=== PATIENT | male | born 1945 ===

== ENCOUNTER 2016-11-18 12:44 | Emergency (ER) | payer MEDICARE, OTHER ==
[2016-11-18 12:45] VITALS: BMI 25.7
[2016-11-18 13:04] VITALS: RESP 18
[2016-11-18 14:16] LABS: BASO # 0.1 K/uL (0.0-0.2); BASO % 0.5 % (0.0-2.0); EOS # 1.3 K/uL (0.0-0.7); EOS % 8.4 % (0.0-4.0); HEMATOCRIT 44.5 % (35.0-51.0); LYMPH # 1.8 K/uL (1.0-4.3); LYMPH % 11.6 % (20.0-40.0); MEAN CELL VOLUME 79.3 fL (80.0-94.0); MEAN CORPUSCULAR HEMOGLOBIN 26.2 pg (27.0-31.0); MEAN CORPUSCULAR HGB CONC 33.1 g/dL (33.0-37.0); MEAN PLATELET VOLUME 9.9 fL (7.2-11.7); MONO # 4.4 K/uL (0.0-0.8); MONO % 29.1 % (0.0-10.0); PLATELET COUNT 185 K/uL (130-400); RED CELL DISTRIBUTION WIDTH 17.4 % (11.5-14.5); WHITE BLOOD COUNT 15.2 K/uL (4.8-10.8)
[2016-11-18 14:28] LABS: CHLORIDE 96 mmol/L (98-107); POTASSIUM 4.6 mmol/L (3.6-5.2); SODIUM 135 mmol/L (132-148)
[2016-11-18 14:30] LABS: GFR AFRICAN-AMERICAN > 60
[2016-11-18 14:31] LABS: ALKALINE PHOSPHATASE 68 U/L (38-126); ALT/SGPT 18 U/L (21-72); AST/SGOT 14 U/L (17-59); BILIRUBIN,TOTAL 0.9 mg/dL (0.2-1.3); BLOOD UREA NITROGEN 11 mg/dL (9-20); CALCIUM 9.4 mg/dl (8.6-10.4); CARBON DIOXIDE 29 mmol/L (22-30); GLUCOSE,RANDOM 100 mg/dL (75-110); TOTAL PROTEIN 8.9 g/dL (6.3-8.3)
--- NOTE | 2016-11-18 14:43 | CT ---
PROCEDURE: CT HEAD WITHOUT CONTRAST. HISTORY: Headache COMPARISON: None available. TECHNIQUE: Axial computed tomography images were obtained through the head/brain without intravenous contrast. Radiation dose: Total exam DLP = 822.62 mGy-cm. This CT exam was performed using one or more of the following dose reduction techniques: Automated exposure control, adjustment of the mA and/or kV according to patient size, and/or use of iterative reconstruction technique. FINDINGS: HEMORRHAGE: No intracranial hemorrhage. BRAIN: Diffuse atrophy with prominence of the ventricles and sulci noted. No mass effect or edema. Intracranial atherosclerotic calcifications. Moderate scattered periventricular and subcortical white matter hypodensities, which are nonspecific, but often seen with chronic microvascular ischemic disease. Please note that MRI with diffusion imaging is more sensitive in the detection of acute ischemic event. VENTRICLES: No hydrocephalus. CALVARIUM: Unremarkable. PARANASAL SINUSES: Unremarkable as visualized. No significant inflammatory changes. MASTOID AIR CELLS: Unremarkable as visualized. No inflammatory changes. OTHER FINDINGS: Deviated nasal septum with left-sided bony spur measuring approximately 4 mm. IMPRESSION: Generalized atrophy. Moderate nonspecific white matter changes.
--- NOTE | 2016-11-18 14:53 | CT ---
CT maxillofacial bones without IV contrast Indication: Facial pain Comparison: None available Technique: Axial computed tomography images were obtained of the maxillofacial bones without the use of intravenous contrast. Coronal and sagittal reformatted images were generated and reviewed. This CT exam was performed using 1 or more of the falling dose reduction techniques: Automated exposure control, adjustment of the MAA and/or kV according to patient size, and/or use of iterative reconstruction technique. Radiation dose: Total exam DLP = 836.46 mGy-cm. Findings: The facial bones appear intact without acute displaced fracture. The orbits appear unremarkable. Temporomandibular joints are located. Poor dentition. The paranasal sinuses appear clear without air-fluid levels. The mastoid air cells appear clear. The visualized brain appears unremarkable. Prominent sub cm lymph nodes throughout the neck, nonspecific. Degenerative changes of the included portions cervical spine, particularly at the C1-C2 level. Impression: No acute findings identified. See above.
[2016-11-18] MEDS ORDERED: Sodium Chloride 0.9% 500 ML IV ONE ×2 (15:01→15:11)
[2016-11-18 15:18] LABS: EOSINOPHIL 7 % (0-4); NEUTROPHIL 56 % (50-75); TOTAL CELLS COUNTED 100
[2016-11-18 15:19] LABS: GIANT PLATELETS PRESENT
[2016-11-18] MEDS ORDERED: Amoxicillin-Clav 875-125 mg Tab PO STA (15:22)
--- NOTE | 2016-11-18 15:25 | C.PDOC ---
History Of Present Illness Pt c/o left facial pain. Mouth pain. Time Seen by Provider: 11/18/16 13:32 Chief Complaint (Nursing): Headache History Per: Patient, Family Onset/Duration Of Symptoms: Days (6), Intermittent Episodes, Gradual Current Symptoms Are (Timing): Still Present Severity: Moderate Quality: "Pain" Additional History Per: Prior Records Past Medical History Reviewed: Historical Data, Nursing Documentation, Vital Signs Vital Signs: Last Vital Signs Temp 97.6 F 11/18/16 13:01 Pulse 100 H 11/18/16 13:01 Resp 18 11/18/16 13:01 BP 132/87 11/18/16 13:01 Pulse Ox 96 11/18/16 13:01 - Medical History PMH: Atrial Fibrillation, HTN - [facility] Procedures OTH & OPEN BILAT REP INDIRECT INGUINAL HERNIA W [facility] OR PROST (06/28/13) TETANUS TOXOID ADMINIST (11/16/12) Family History: States: Unknown Family Hx - Social History Hx Tobacco Use: Yes Hx Alcohol Use: No Hx Substance Use: No - Immunization History Hx Tetanus Toxoid Vaccination: No Hx Influenza Vaccination: No Hx Pneumococcal Vaccination: No Review Of Systems Except As Marked, All Systems Reviewed And Found Negative. Constitutional: Negative for: Fever, Weakness Eyes: Negative for: Vision Change ENT: Positive for: Mouth Pain, Throat Pain. Negative for: Ear Discharge Cardiovascular: Negative for: Chest Pain Respiratory: Negative for: Shortness of Breath, Hemoptysis Gastrointestinal: Negative for: Nausea, Vomiting, Abdominal Pain Genitourinary: Negative for: Dysuria Musculoskeletal: Negative for: Neck Pain, Back Pain Skin: Negative for: Rash Neurological: Positive for: Headache. Negative for: Weakness, Numbness, Seizures, Altered Mental Status Physical Exam - Physical Exam Appears: Non-toxic, No Acute Distress Skin: Normal Color, Warm, Dry, No Rash Head: Atraumatic, Normacephalic Eye(s): bilateral: Normal Inspection, PERRL, EOMI Ear(s): Bilateral: Normal Oral Mucosa: Moist, No Drooling, No Trismus Tongue: Normal Appearing Gingiva: Erythema, Swelling Throat: Erythema, No Exudate, No Drooling Neck: Normal ROM, Supple Lymphatic: No Adenopathy Cardiovascular: Rhythm Regular Respiratory: Normal Breath Sounds, No Accessory Muscle Use Gastrointestinal/Abdominal: Soft, No Tenderness Back: No CVA Tenderness Extremity: Normal ROM Neurological/Psych: Oriented x3, Normal Speech, Normal Cognition, Normal Motor, Normal Sensation ED Course And Treatment - Laboratory Results Result Diagrams: 11/18/16 14:13 11/18/16 14:13 Interpretation Of Abnormal: Leukocytosis. ECG: Interpreted By Me, Viewed By Me ECG Rhythm: Sinus Rhythm ECG Interpretation: No Acute Changes Rate From EC O2 Sat by Pulse Oximetry: 96 Pulse Ox Interpretation: Normal - CT Scan/US CT head Other Rad Studies (CT/US): Read By Radiologist, Radiology Report Reviewed CT/US Interpretation: IMPRESSION: Generalized atrophy. Moderate nonspecific white matter changes. CT Facial bones Other Rad Studies (CT/US): Read By Radiologist, Radiology Report Reviewed CT/US Interpretation: Impression: No acute findings identified. Reassessment Condition: Improved Disposition Counseled Patient/Family Regarding: Studies Performed, Diagnosis, Need For Followup, Rx Given - Disposition Referrals: [facility] [Outside] Disposition: HOME/ ROUTINE Disposition Time: 15:28 Condition: IMPROVED Additional Instructions: Use antiseptic mouth wash. Follow up in the clinic within 1-2 weeks for further evaluation and treatment. Return to the ER if you develop fever, vomiting, trouble breathing or swallowing, worsening of symptoms or if you have any other concerns. Prescriptions: Acetaminophen [Tylenol Extra Strength] 2 tab PO Q6 PRN #30 tablet PRN Reason: Pain, Moderate (4-7) Amoxicillin/Clavulanate [Augmentin 875 MG-125 MG] 1 tab PO BID #14 tab Instructions: Gingivitis (ED) Forms: General Discharge Instructions, Gen Discharge Inst Khmer Print Language: TRINIDADIAN - Clinical Impression Clinical Impression: Gingivitis, Facial pain
[2016-11-18] MEDS ORDERED: Amoxicillin-Clav 875-125 mg Tab PO ONE (15:38)
[2016-11-18 15:46] VITALS: BP 121/77; PULSE 74; TEMP 98; O2SAT 98
--- NOTE | 2016-11-20 07:53 | CARD ---
APPROVED REPORT EKG Measurement Heart [id number] <Conclusion> Normal sinus rhythm Normal ECG
== END 2016-11-18 15:46 | disposition home or self-care (01) ==
LOC: C.ER 12:44
DX: R51 Headache (principal); K05.10 Chronic gingivitis, plaque induced
CPT/HCPCS: 70450; 70486; 80053; 84484; 85025; 87070; 87430; 93005; 96374; 99285; J1885; J7040

== ENCOUNTER 2016-11-28 09:29 | Observation (INO) | payer OTHER ==
[2016-11-28 09:29] VITALS: BMI 25.7
--- NOTE | 2016-11-28 10:11 | C.PDOC ---
History Of Present Illness RECUR L EAR/FACIAL SWELL X 2 DAYS. +SORE THROAT. SEEN 11/18 FOR SAME, DC W ABX. CT FACIAL AND HEAD REVIEWED.PS FINISHED ABX 2 DAYS AGO, WAS DOING WELL UNTIL MEDS FINISHED. NOW W RECUR SX. NO FEVER. NO PMD OR DENTAL FU SINCE PRIOR ER VISIT. SP TYLENOL @ 0800 EXAM NONTOXIC HEENT L TM NEG; MILD SWELL L FACIAL/PAROTID AREA NONTEND. POOR DENTITION. MILD SWELL L TONSIL, NO EXUDATE MIN ERYTHEMA + L SUBMAND ADENOPATHY MILD TEND MOBILE. NECK SUPPLE Time Seen by Provider: 11/28/16 10:00 Chief Complaint (Nursing): ENT Problem Past Medical History Reviewed: Historical Data, Nursing Documentation, Vital Signs Vital Signs: Last Vital Signs Temp 97.5 F L 11/28/16 13:03 Pulse 75 11/28/16 13:03 Resp 18 11/28/16 13:03 BP 136/83 11/28/16 13:03 Pulse Ox 97 11/28/16 13:28 - Medical History PMH: Atrial Fibrillation, HTN Denies: Chronic Kidney Disease - [facility] Procedures OTH & OPEN BILAT REP INDIRECT INGUINAL HERNIA W GRF OR PROST (06/28/13) TETANUS TOXOID ADMINIST (11/16/12) Family History: States: No Known Family Hx - Social History Hx Tobacco Use: Yes Hx Alcohol Use: No Hx Substance Use: No - Immunization History Hx Tetanus Toxoid Vaccination: No Hx Influenza Vaccination: No Hx Pneumococcal Vaccination: No Review Of Systems Except As Marked, All Systems Reviewed And Found Negative. ENT: Positive for: Throat Pain, Other (EAR/FACIAL SWELL X 2 DAYS. ) Cardiovascular: Negative for: Chest Pain Respiratory: Negative for: Shortness of Breath Gastrointestinal: Negative for: Vomiting Skin: Negative for: Rash Physical Exam - Physical Exam Appears: Non-toxic, No Acute Distress Head: Other (MILD SWELL L FACIAL/PAROTID AREA, NONTEND. + L SUBMAND ADENOPATHY MILD TEND MOBILE.) Eye(s): left: Normal Inspection Teeth: No Normal Dentition (POOR) Throat: Erythema (minimal), No Exudate, Other (mild swelling to left tonsil) Neck: Normal ROM, Supple Respiratory: No Accessory Muscle Use Extremity: Normal ROM ED Course And Treatment - Laboratory Results Result Diagrams: 11/28/16 10:23 11/28/16 10:23 O2 Sat by Pulse Oximetry: 97 Progress - Data Reviewed Data Reviewed: Old records ED OBSERVATION Discharge: Yes Date of observation admission: 11/28/16 Time of observation admission: 10:00 - Observation admission statement Patient is being placed in observation because:: RECUR FACIAL SWELL - Goals of Observation Goals of observation are:: NEG ABSCESS - Progress Note Progress Note: 11/28/16 13:11 EXAM UNCH APPEARS COMFORTABLE NONTOXIC VSS. COPIES OF CT AND LABS GIVEN. ADVISED OF NEED FOR CLINIC FU. Disposition Counseled Patient/Family Regarding: Studies Performed, Diagnosis, Need For Followup - Disposition Disposition: HOME/ ROUTINE Disposition Time: 13:27 Condition: GOOD - Clinical Impression Clinical Impression: Facial swelling - Scribe Statement The provider has reviewed the documentation as recorded by the Torres Farias All medical record entries made by the Florenciaibkavin were at my direction and personally dictated by me. I have reviewed the chart and agree that the record accurately reflects my personal performance of the history, physical exam, medical decision making, and the department course for this patient. I have also personally directed, reviewed, and agree with the discharge instructions and disposition.
[2016-11-28 10:32] LABS: BASO # 0.1 K/uL (0.0-0.2); BASO % 0.9 % (0.0-2.0); EOS # 0.5 K/uL (0.0-0.7); EOS % 4.1 % (0.0-4.0); HEMATOCRIT 44.6 % (35.0-51.0); LYMPH # 1.9 K/uL (1.0-4.3); LYMPH % 14.8 % (20.0-40.0); MEAN CELL VOLUME 79.9 fL (80.0-94.0); MEAN CORPUSCULAR HEMOGLOBIN 26.2 pg (27.0-31.0); MEAN CORPUSCULAR HGB CONC 32.8 g/dL (33.0-37.0); MEAN PLATELET VOLUME 9.7 fL (7.2-11.7); MONO # 3.9 K/uL (0.0-0.8); MONO % 30.3 % (0.0-10.0); NRBC % 0.1 % (0.0-2.0); PLATELET COUNT 228 K/uL (130-400); RED CELL DISTRIBUTION WIDTH 17.4 % (11.5-14.5)
[2016-11-28 10:41] LABS: CHLORIDE 98 mmol/L (98-107); POTASSIUM 4.5 mmol/L (3.6-5.2); SODIUM 138 mmol/L (132-148)
[2016-11-28 10:43] LABS: CARBON DIOXIDE 27 mmol/L (22-30); GFR AFRICAN-AMERICAN > 60
[2016-11-28 10:44] LABS: BLOOD UREA NITROGEN 12 mg/dL (9-20); CALCIUM 9.2 mg/dl (8.6-10.4); GLUCOSE,RANDOM 101 mg/dL (75-110)
[2016-11-28 11:03] LABS: EOSINOPHIL 5 % (0-4); MYELOCYTE 1 % (0-0); NEUTROPHIL 40 % (50-75); REACTIVE LYMPHOCYTES 4 % (0-0); TOTAL CELLS COUNTED 100
[2016-11-28 11:04] LABS: GIANT PLATELETS PRESENT; LARGE PLATELETS PRESENT
[2016-11-28 11:05] LABS: VENOUS BLOOD GAS BASE EXCESS -1.5 mmol/L (0.0-2.0); VENOUS BLOOD GAS PCO2 47 mmHg (40-60); VENOUS BLOOD PH 7.33 (7.32-7.43)
[2016-11-28] MEDS ORDERED: Iodixanol 320 MG/ML 100 ML BOTTLE IV ONE (11:35)
--- NOTE | 2016-11-28 12:54 | CT ---
PROCEDURE: CT MAXILLOFACIAL BONES WITH CONTRAST HISTORY: RECUR L FACIAL SWELL PLEASE COMPARE W 11/18 COMPARISON: None. TECHNIQUE: Contiguous axial CT images of the maxillofacial bones were obtained following intravenous infusion of approximately 100 cc Visipaque 320 contrast material. Coronal and sagittal reformats were generated. Radiation dose: Total exam DLP = 837.84 mGy-cm. This CT exam was performed using one or more of the following dose reduction techniques: Automated exposure control, adjustment of the mA and/or kV according to patient size, and/or use of iterative reconstruction technique. FINDINGS: NASAL BONES: No evidence of acute of nasal bone fractures. . There is a very slight deviation of the mid aspect of the nasal septum to the left side associated with a small bony osteophyte projecting into the left nasal cavity. The nasal septum courses back towards the left side anteriorly within other smaller osteophyte projecting into the right aspect anterior nasal cavity. ORBITS: Orbits and contents appear grossly unremarkable. Globes intact and lenses appropriately located. There are no retrobulbar hemorrhages or collections. Optic nerves and extraocular musculature unremarkable. PARANASAL SINUSES/ MASTOIDS: Minor mucosal thickening seen within the ethmoid air complex as well as the right maxillary sinus. MAXILLA: Maxilla including the anterior nasal spine is intact. MANDIBLE/ TEMPOROMANDIBULAR JOINTS: The mandible and TMJs appear intact SKULL BASE: Unremarkable. TEMPORAL BONES: Middle ears and mastoid grossly unremarkable. OTHER FINDINGS: Moderate to significant chronic periventricular white matter ischemic changes seen extending peripherally into the deep and subcortical white matter both cerebral hemispheres. Minor vascular calcifications both carotid siphons. Brainstem appears grossly unremarkable. Mildly asymmetry of the palatine tonsils left-side of which is slightly larger than the right. The maxilla is completely edentulous. Poor on mandibular dentition There are multiple small nonspecific bilateral cervical lymph nodes none of which appear pathologically enlarged. IMPRESSION: Minimal mucosal thickening seen within the right maxillary antrum and ethmoid air complex as described No acute pathology seen.
[2016-11-28 13:04] VITALS: BP 136/83; PULSE 75; RESP 18; TEMP 97.5
[2016-11-28 13:27] VITALS: O2SAT 97
== END 2016-11-28 13:28 | disposition home or self-care (01) ==
LOC: C.ER 09:29 → C.9OBSV 10:00
PROVIDERS: ADMIT Emergency Medicine; ATTEND Emergency Medicine
DX: R22.9 Localized swelling, mass and lump, unspecified (principal); I10 Essential (primary) hypertension; I48.91 Unspecified atrial fibrillation; Z87.891 Personal history of nicotine dependence
CPT/HCPCS: 70481; 80048; 82803; 85025; 87040; 96374; 99283; G0378; J1885

== ENCOUNTER 2017-01-08 13:01 | Emergency (ER) | payer OTHER ==
[2017-01-08 13:23] VITALS: BMI 23.6
[2017-01-08 13:25] VITALS: RESP 20
[2017-01-08] MEDS ORDERED: Sodium Chloride 0.9% 1,000 ML IV ONE (13:55)
[2017-01-08] MEDS ORDERED: Sodium Chloride 0.9% 1,000 ML ONE (14:13)
[2017-01-08] MEDS ORDERED: Morphine 4 MG/ML VIAL ONE (14:13)
--- NOTE | 2017-01-08 14:27 | C.PDOC ---
History Of Present Illness 71 y/o male c/o RUQ abdominal pain for 2 weeks, worsening today. Patient states he went to the clinic and was referred to ER. Notes history of gall stones. Denies fever, chills, nausea, vomiting, diarrhea, or constipation. Time Seen by Provider: 01/08/17 13:48 Chief Complaint (Nursing): Abdominal Pain History Per: Patient History/Exam Limitations: no limitations Onset/Duration Of Symptoms: Days Current Symptoms Are (Timing): Still Present Location Of Pain/Discomfort: RUQ Radiation Of Pain To:: None Quality Of Discomfort: "Pain" Associated Symptoms: denies: Nausea, Vomiting, Diarrhea, Urinary Symptoms Recent travel outside of the [place]: No Past Medical History Reviewed: Historical Data, Nursing Documentation, Vital Signs Vital Signs: Last Vital Signs Temp 97.6 F 01/08/17 16:25 Pulse 74 01/08/17 16:25 Resp 20 01/08/17 16:25 BP 143/75 01/08/17 16:25 Pulse Ox 97 01/08/17 18:39 - Medical History PMH: Atrial Fibrillation, HTN - [facility] Procedures OTH & OPEN BILAT REP INDIRECT INGUINAL HERNIA W GR[facility] OR PROST (06/28/13) TETANUS TOXOID ADMINIST (11/16/12) Family History: States: Unknown Family Hx - Social History Hx Tobacco Use: Yes Hx Alcohol Use: No Hx Substance Use: No - Immunization History Hx Tetanus Toxoid Vaccination: No Hx Influenza Vaccination: No Hx Pneumococcal Vaccination: No Review Of Systems Except As Marked, All Systems Reviewed And Found Negative. Constitutional: Negative for: Fever, Chills Cardiovascular: Negative for: Chest Pain Respiratory: Negative for: Cough, Shortness of Breath, Wheezing Gastrointestinal: Positive for: Abdominal Pain. Negative for: Vomiting, Diarrhea Genitourinary: Negative for: Dysuria Skin: Negative for: Rash Physical Exam - Physical Exam Appears: Non-toxic, Other (uncomfortable, in pain) Skin: Normal Color, Warm, Dry Head: Atraumatic, Normacephalic Oral Mucosa: Moist Chest: Symmetrical Cardiovascular: Rhythm Regular Respiratory: Normal Breath Sounds, No Rales, No Rhonchi, No Wheezing Gastrointestinal/Abdominal: Bowel Sounds (active), Soft, Tenderness (RUQ), No Guarding, No Rebound, Hernia (left soft non-tender, reducible, inguinal hernia ) , Other (+jain's sign ) Back: Normal Inspection, No CVA Tenderness Extremity: Normal ROM, Capillary Refill (< 2 sec. ) Neurological/Psych: Oriented x3, Normal Speech, Normal Cognition ED Course And Treatment - Laboratory Results Result Diagrams: 01/08/17 14:21 01/08/17 14:21 O2 Sat by Pulse Oximetry: 97 (RA) Pulse Ox Interpretation: Normal - CT Scan/US Abdomen Complete Ultrasound Other Rad Studies (CT/US): Radiology Report Reviewed CT/US Interpretation: HISTORY: RUQ abd pain. COMPARISON: CT abdomen and pelvis with contrast performed 07/16/16, abdominal ultrasound performed 07/16/16. TECHNIQUE: Sonographic evaluation of the abdomen. FINDINGS: LIVER: Measures 17.7 cm in sagittal dimension. Echogenic liver may be seen in setting of hepatic parenchymal disease or fatty infiltration. No focal hepatic mass identified. The main portal vein appears patent with normal directional flow. No intrahepatic bile duct dilatation. GALLBLADDER: Gallstones. No gallstones. No gallbladder wall thickening. Negative sonographic Jain's sign as assessed by the graduate advisor. COMMON BILE DUCT: Measures 6 mm. PANCREAS: Not well visualized. RIGHT KIDNEY: Measures 12.1 x 5.2 x 5.8 cm. No obstructing calculus or hydronephrosis identified. LEFT KIDNEY: Measures 12.4 x 5.6 x 5.3 cm. 0.9 x 0.8 x 0.8 cm upper pole cyst. No obstructing calculus or hydronephrosis identified. SPLEEN: Measures approximately 14.3 cm. AORTA: Limited views appear unremarkable. IVC: Limited views appear unremarkable. OTHER FINDINGS: None. IMPRESSION: Echogenic liver may be seen in setting of hepatic parenchymal disease or fatty infiltration. Cholelithiasis. 9 mm left upper pole renal cyst. Splenomegaly. Medical Decision Making Medical Decision Making: PLAN: Treated with IVFs and morphine. Bloodwork, urinalysis, and ultrasound ordered. PROGRESS: Labs and US reviewed. no leukocytosis or electrolyte abnormality. US shows cholelithiasis no cholecystitis. On re-evaluation, patient resting comfortably, with improvement of symptoms. Patient in no acute distress. Advised follow up with clinic and to take medications as directed. Disposition Counseled Patient/Family Regarding: Diagnosis, Need For Followup, Rx Given - Disposition Referrals: Dasia Guan MD [Staff Provider] - Disposition: HOME/ ROUTINE Disposition Time: 16:15 Condition: STABLE Additional Instructions: Martha laboratorios sujey normales y la ecografa muestra clculos biliares sin infeccin Por favor, siga en la clnica con el Dr. Guan para letitia evaluacin ms Si tiene dolor, tome el medicamento enviado a delgado farmacia Prescriptions: Dicyclomine [Dicyclomine HCl] 10 mg PO Q6 #20 cap Instructions: Biliary Colic (ED), Gallstones (DC) Print Language: SCOTTISH - POA Present On Arrival: None - Clinical Impression Clinical Impression: Biliary colic, Cholelithiasis - PA / RIGGER CHIEF / Resident Statement MD/DO has reviewed & agrees with the documentation as recorded. - Scribe Statement The provider has reviewed the documentation as recorded by the Scribkavin Ascencio All medical record entries made by the Scribkavin were at my direction and personally dictated by me. I have reviewed the chart and agree that the record accurately reflects my personal performance of the history, physical exam, medical decision making, and the department course for this patient. I have also personally directed, reviewed, and agree with the discharge instructions and disposition.
[2017-01-08 14:39] LABS: RBC URINE < 1 /hpf (0-3); URINE BACTERIA RARE (<OCC); URINE BILIRUBIN NEGATIVE (NEGATIVE); URINE BLOOD NEGATIVE (NEGATIVE); URINE COLOR Yellow (YELLOW); URINE GLUCOSE (UA) NORMAL (Normal); URINE KETONE NEGATIVE (NEGATIVE); URINE LEUKOCYTE ESTERASE NEG Leu/uL (Negative); URINE PROTEIN 2+ mg/dL (NEGATIVE); URINE UROBILINOGEN NORMAL mg/dL (0.2-1.0); WBC URINE 1 /hpf (0-5)
[2017-01-08 14:42] LABS: BASO # 0.2 K/uL (0.0-0.2); BASO % 1.2 % (0.0-2.0); EOS # 1.4 K/uL (0.0-0.7); EOS % 10.2 % (0.0-4.0); HEMATOCRIT 43.2 % (35.0-51.0); LYMPH # 2.1 K/uL (1.0-4.3); LYMPH % 14.5 % (20.0-40.0); MEAN CELL VOLUME 80.8 fL (80.0-94.0); MEAN CORPUSCULAR HEMOGLOBIN 26.8 pg (27.0-31.0); MEAN CORPUSCULAR HGB CONC 33.2 g/dL (33.0-37.0); MEAN PLATELET VOLUME 9.5 fL (7.2-11.7); MONO # 3.4 K/uL (0.0-0.8); NRBC % 0.1 % (0.0-2.0); PLATELET COUNT 182 K/uL (130-400); RED CELL DISTRIBUTION WIDTH 17.8 % (11.5-14.5); WHITE BLOOD COUNT 14.3 K/uL (4.8-10.8)
[2017-01-08 14:43] LABS: CHLORIDE 101 mmol/L (98-107); POTASSIUM 3.8 mmol/L (3.6-5.2); SODIUM 139 mmol/L (132-148)
[2017-01-08 14:45] LABS: AMYLASE 85 U/L (30-110)
[2017-01-08 14:46] LABS: ALKALINE PHOSPHATASE 70 U/L (38-126); ALT/SGPT 16 U/L (21-72); AST/SGOT 22 U/L (17-59); BILIRUBIN,TOTAL 0.9 mg/dL (0.2-1.3); BLOOD UREA NITROGEN 16 mg/dL (9-20); CALCIUM 9.5 mg/dl (8.6-10.4); CARBON DIOXIDE 27 mmol/L (22-30); GFR AFRICAN-AMERICAN > 60; GLUCOSE,RANDOM 92 mg/dL (75-110); TOTAL PROTEIN 8.4 g/dL (6.3-8.3)
[2017-01-08 15:18] LABS: EOSINOPHIL 10 % (0-4); MYELOCYTE 2 % (0-0); NEUTROPHIL 43 % (50-75); TOTAL CELLS COUNTED 100
--- NOTE | 2017-01-08 16:00 | US ---
HISTORY: RUQ abd pain COMPARISON: CT abdomen and pelvis with contrast performed 07/16/16, abdominal ultrasound performed 07/16/16 TECHNIQUE: Sonographic evaluation of the abdomen. FINDINGS: LIVER: Measures 17.7 cm in sagittal dimension. Echogenic liver may be seen in setting of hepatic parenchymal disease or fatty infiltration. No focal hepatic mass identified. The main portal vein appears patent with normal directional flow. No intrahepatic bile duct dilatation. GALLBLADDER: Gallstones. No gallstones. No gallbladder wall thickening. Negative sonographic Jain's sign as assessed by the machine stone polisher apprentice. COMMON BILE DUCT: Measures 6 mm. PANCREAS: Not well visualized. RIGHT KIDNEY: Measures 12.1 x 5.2 x 5.8 cm. No obstructing calculus or hydronephrosis identified. LEFT KIDNEY: Measures 12.4 x 5.6 x 5.3 cm. 0.9 x 0.8 x 0.8 cm upper pole cyst. No obstructing calculus or hydronephrosis identified. SPLEEN: Measures approximately 14.3 cm. AORTA: Limited views appear unremarkable. IVC: Limited views appear unremarkable. OTHER FINDINGS: None. IMPRESSION: Echogenic liver may be seen in setting of hepatic parenchymal disease or fatty infiltration. Cholelithiasis. 9 mm left upper pole renal cyst. Splenomegaly.
[2017-01-08 16:26] VITALS: BP 143/75; PULSE 74; TEMP 97.6
[2017-01-08 18:40] VITALS: O2SAT 97
== END 2017-01-08 16:44 | disposition home or self-care (01) ==
LOC: C.ER 13:01
DX: K80.20 Calculus of gallbladder without cholecystitis without obstruction (principal); K80.50 Calculus of bile duct without cholangitis or cholecystitis without obstruction
CPT/HCPCS: 76700; 80053; 81001; 82150; 83690; 85025; 96361; 96374; 99284; J2270; J7040

== ENCOUNTER 2017-01-26 09:02 | Emergency (ER) | payer OTHER ==
[2017-01-26 09:03] VITALS: BMI 23.6
[2017-01-26 09:07] VITALS: TEMP 97.5
--- NOTE | 2017-01-26 10:42 | C.PDOC ---
History Of Present Illness Patient is a 71 y/o male, with past medical history of migraine headache, presets to the emergency department for evaluation of right sided migraine headache for the last 4 days. Pt states his headache is behind his right eye, and also reports lacrimation from the right eye. Notes mild improvement of headache after taking Motrin. Otherwise, denies any trauma, fall, nausea, vomiting, dizziness, change in vision, or fever. Time Seen by Provider: 01/26/17 09:21 Chief Complaint (Nursing): Headache History Per: Patient History/Exam Limitations: no limitations Onset/Duration Of Symptoms: Days (4) Current Symptoms Are (Timing): Still Present Quality: Aching Preceeding Symptoms: Known Migraine Symptoms Associated Symptoms: denies: Photophobia, Blurred Vision, Nausea, Vomiting, Extremity Weakness Recent travel outside of the [place]: No Additional History Per: Patient Past Medical History Reviewed: Historical Data, Nursing Documentation, Vital Signs Vital Signs: Last Vital Signs Temp 97.5 F L 01/26/17 09:06 Pulse 63 01/26/17 11:37 Resp 20 01/26/17 11:37 BP 137/90 01/26/17 11:37 Pulse Ox 97 01/26/17 11:37 - Medical History PMH: Atrial Fibrillation, HTN, Migraine Denies: Chronic Kidney Disease - [facility] Procedures OTH & OPEN BILAT REP INDIRECT INGUINAL HERNIA W [facility] OR PROST (06/28/13) TETANUS TOXOID ADMINIST (11/16/12) Family History: States: Unknown Family Hx - Social History Hx Tobacco Use: Yes Hx Alcohol Use: No Hx Substance Use: No - Immunization History Hx Tetanus Toxoid Vaccination: No Hx Influenza Vaccination: No Hx Pneumococcal Vaccination: No Review Of Systems Except As Marked, All Systems Reviewed And Found Negative. Constitutional: Negative for: Fever, Chills Eyes: Positive for: Other (lacrimation from right eye). Negative for: Vision Change Cardiovascular: Negative for: Chest Pain, Palpitations, Orthopnea, Edema, Light Headedness Respiratory: Negative for: Cough, Shortness of Breath, SOB with Excertion, Wheezing Gastrointestinal: Negative for: Nausea, Vomiting Musculoskeletal: Negative for: Neck Pain Skin: Negative for: Rash Neurological: Positive for: Headache. Negative for: Weakness, Numbness, Incoordination, Change in Speech, Confusion, Seizures, Altered Mental Status, Dizziness Physical Exam - Physical Exam Appears: Well, Non-toxic, No Acute Distress Skin: Normal Color, Warm, Dry Head: Atraumatic, Normacephalic Eye(s): bilateral: Normal Inspection, PERRL, EOMI Ear(s): Bilateral: Normal Nose: Normal Oral Mucosa: Moist Throat: Normal Neck: Normal ROM, Supple Chest: Symmetrical Cardiovascular: Rhythm Regular, No Murmur Respiratory: Normal Breath Sounds, No Accessory Muscle Use, No Rales, No Rhonchi , No Wheezing Gastrointestinal/Abdominal: Soft, No Tenderness, No Mass, No Distention Back: Normal Inspection Extremity: Normal ROM Extremity: Bilateral: Atraumatic Neurological/Psych: Oriented x3 (awake, alert), Normal Speech, Normal Cognition , Normal Cranial Nerves, Normal Motor, Normal Sensation (Normal strength), Other (no focal deficits, neurologically intact) Gait: Steady ED Course And Treatment O2 Sat by Pulse Oximetry: 87 Medical Decision Making Medical Decision Making: CT head scan performed on 11/18/16 to rule out mass. Patient has hx of headaches and this is not the worst headache of patient's life. It was gradual in onset and is improved since 2 days ago. Patient was treated with Sumatriptan. 11:11AM Headache is resolved. Patient is neurologically intact. He is requesting medication for tinea pedis. Will dc with topical cream. Will dc with neurology follow-up. Disposition - Disposition Referrals: Candelario Cruz MD [Staff Provider] - Disposition: HOME/ ROUTINE Disposition Time: 11:13 Condition: GOOD Additional Instructions: Follow up with PMD within 2 days. Follow-up with neurology. Tylenol for headache. Cream for tinea pedis. Return to ED if condition worsens. Prescriptions: Acetaminophen [Acetaminophen Extra Strength] 500 mg PO Q6 #30 tablet Clotrimazole 1% Cream [Lotrimin 1%] 1 applic TOP BID #1 tube Instructions: Tinea Pedis (ED), Migraine Headache (ED) Print Language: LAO - Clinical Impression Clinical Impression: Migraine, Tinea pedis - Scribe Statement The provider has reviewed the documentation as recorded by the Scribe Taiwo Olmedo All medical record entries made by the Scribe were at my direction and personally dictated by me. I have reviewed the chart and agree that the record accurately reflects my personal performance of the history, physical exam, medical decision making, and the department course for this patient. I have also personally directed, reviewed, and agree with the discharge instructions and disposition.
[2017-01-26 11:41] VITALS: BP 137/90; PULSE 63; RESP 20
[2017-01-26 12:19] VITALS: O2SAT 87
== END 2017-01-26 11:40 | disposition home or self-care (01) ==
LOC: C.ER 09:02
DX: G43.909 Migraine, unspecified, not intractable, without status migrainosus (principal); B35.3 Tinea pedis

== ENCOUNTER 2017-04-11 08:24 | Emergency (ER) | payer OTHER ==
[2017-04-11 08:24] VITALS: BMI 23.6
--- NOTE | 2017-04-11 08:39 | C.PDOC ---
History Of Present Illness 71M c/o gradual onset constant right side head x4 days. has hx of multiple migraines in the past and says this feels the same as prior. took motrin without relief. no other exac or reliev fx. denies f/c, n/v, numbness, weakness. Time Seen by Provider: 04/11/17 08:38 Chief Complaint (Nursing): Headache Past Medical History Vital Signs: Last Vital Signs Temp 97.9 F 04/11/17 08:34 Pulse 72 04/11/17 10:22 Resp 16 04/11/17 10:22 BP 156/91 H 04/11/17 10:22 Pulse Ox 98 04/11/17 10:22 - Medical History PMH: Atrial Fibrillation, HTN, Migraine Denies: Chronic Kidney Disease - [facility] Procedures OTH & OPEN BILAT REP INDIRECT INGUINAL HERNIA W GRF OR PROST (06/28/13) TETANUS TOXOID ADMINIST (11/16/12) Family History: States: Unknown Family Hx - Social History Hx Tobacco Use: Yes Hx Alcohol Use: No Hx Substance Use: No - Immunization History Hx Tetanus Toxoid Vaccination: No Hx Influenza Vaccination: No Hx Pneumococcal Vaccination: No Review Of Systems Constitutional: Negative for: Fever, Chills Cardiovascular: Negative for: Chest Pain Respiratory: Negative for: Cough, Shortness of Breath Gastrointestinal: Negative for: Nausea, Vomiting Neurological: Positive for: Headache. Negative for: Weakness, Numbness, Confusion, Seizures, Altered Mental Status, Dizziness Physical Exam - Physical Exam Appears: Well, Non-toxic, No Acute Distress Skin: Warm, Dry Head: Atraumatic Eye(s): bilateral: PERRL, EOMI Neck: Normal ROM, Supple Cardiovascular: Rhythm Regular Respiratory: No Decreased Breath Sounds, No Accessory Muscle Use Pulses: Left Radial: Normal, Right Radial: Normal Neurological/Psych: Oriented x3, Normal Cranial Nerves, No Cerebellar Signs, Normal Motor, Normal Sensation, Other (no focla deficits) Gait: Steady ED Course And Treatment O2 Sat by Pulse Oximetry: 98 Medical Decision Making Medical Decision Makinam the pt says his pain is now completely gone and he wishes to go. follow up and return precautions advised. Disposition - Disposition Disposition: HOME/ ROUTINE Disposition Time: 11:07 Condition: IMPROVED Forms: [employer] (Ukrainian) - Clinical Impression Clinical Impression: Headache
[2017-04-11] MEDS ORDERED: DiphenhydrAMINE 50 mg/ml Inj IVP STA (10:01)
[2017-04-11] MEDS ORDERED: DiphenhydrAMINE 50 mg/ml Inj ONE (10:10)
[2017-04-11 10:23] VITALS: PULSE 72; RESP 16
[2017-04-11 13:00] VITALS: BP 144/70; TEMP 98.2; O2SAT 100
== END 2017-04-11 12:00 | disposition home or self-care (01) ==
LOC: C.ER 08:24
DX: R51 Headache (principal)
CPT/HCPCS: 96374; 96375; 99285; J0780; J1200

== ENCOUNTER 2017-05-26 23:15 | Emergency (ER) | payer MEDICARE, OTHER ==
[2017-05-26 23:16] VITALS: BMI 23.6
[2017-05-26 23:30] LABS: BASO # 0.2 K/uL (0.0-0.2); BASO % 1.2 % (0.0-2.0); EOS # 1.4 K/uL (0.0-0.7); EOS % 8.4 % (0.0-4.0); HEMATOCRIT 44.4 % (35.0-51.0); LYMPH # 2.3 K/uL (1.0-4.3); LYMPH % 13.7 % (20.0-40.0); MEAN CELL VOLUME 79.6 fL (80.0-94.0); MEAN CORPUSCULAR HGB CONC 32.7 g/dL (33.0-37.0); MEAN PLATELET VOLUME 9.9 fL (7.2-11.7); MONO # 4.8 K/uL (0.0-0.8); MONO % 28.4 % (0.0-10.0); PLATELET COUNT 189 K/uL (130-400); RED CELL DISTRIBUTION WIDTH 17.3 % (11.5-14.5)
[2017-05-26 23:50] LABS: ALKALINE PHOSPHATASE 77 U/L (38-126); ALT/SGPT 56 U/L (21-72); AST/SGOT 60 U/L (17-59); BLOOD UREA NITROGEN 16 mg/dL (9-20); CALCIUM 8.8 mg/dl (8.6-10.4); CARBON DIOXIDE 27 mmol/L (22-30); CHLORIDE 98 mmol/L (98-107); GFR AFRICAN-AMERICAN > 60; GLUCOSE,RANDOM 112 mg/dL (75-110); SODIUM 136 mmol/L (132-148); TOTAL PROTEIN 8.4 g/dL (6.3-8.3)
[2017-05-26 23:51] LABS: EOSINOPHIL 10 % (0-4); MYELOCYTE 3 % (0-0); NEUTROPHIL 42 % (50-75); TOTAL CELLS COUNTED 100
[2017-05-26] MEDS ORDERED: Alum-Mag Hydrox-Simethicone Susp (30 mL) PO STA (23:52)
--- NOTE | 2017-05-26 23:52 | C.PDOC ---
History Of Present Illness 71 year old male with Hx of kidney stones presents to the ED c/o abdominal pain that radiates all over his abdomen and chest that started about 2 hours ago associated with some vomit, constipation. Patient states his last meal was at 18 :00 and he started feeling ill approximately 2 hours after that. Patient denies any diarrhea, fever, chills, recent travel. Chief Complaint (Nursing): Chest Pain History Per: Patient History/Exam Limitations: no limitations Onset/Duration Of Symptoms: Hrs Current Symptoms Are (Timing): Still Present Context: Food Severity: Moderate Associated Symptoms: Nausea. denies: Dyspnea, Diaphoresis Modifying Factors: None Exacerbating Factors: Movement Alleviating Factors: None Recent travel outside of the [place]: No Additional History Per: Patient Past Medical History Reviewed: Historical Data, Nursing Documentation, Vital Signs Vital Signs: Last Vital Signs Temp 97.4 F L 05/27/17 03:30 Pulse 89 05/27/17 03:35 Resp 14 05/27/17 03:35 BP 114/64 05/27/17 03:35 Pulse Ox 99 05/27/17 03:46 - Medical History PMH: Atrial Fibrillation, HTN, Migraine Denies: Chronic Kidney Disease Surgical History: No Surg Hx - [facility] Procedures OTH & OPEN BILAT REP INDIRECT INGUINAL HERNIA W GRF OR PROST (06/28/13) TETANUS TOXOID ADMINIST (11/16/12) Family History: States: Unknown Family Hx - Social History Hx Tobacco Use: Yes Hx Alcohol Use: No Hx Substance Use: No - Immunization History Hx Tetanus Toxoid Vaccination: No Hx Influenza Vaccination: No Hx Pneumococcal Vaccination: No Review Of Systems Constitutional: Negative for: Fever, Chills Cardiovascular: Positive for: Chest Pain. Negative for: Palpitations Respiratory: Negative for: Cough, Shortness of Breath Gastrointestinal: Positive for: Vomiting, Abdominal Pain, Constipation. Negative for: Nausea, Diarrhea Genitourinary: Negative for: Incontinence Musculoskeletal: Negative for: Back Pain Neurological: Negative for: Weakness, Numbness Physical Exam - Physical Exam Appears: In Acute Distress Skin: Normal Color, Warm, Dry Head: Atraumatic, Normacephalic Oral Mucosa: Moist Throat: Normal, No Erythema, No Exudate Neck: Normal ROM, Supple Chest: Symmetrical, No Tenderness Cardiovascular: Rhythm Regular, No Murmur, No JVD Respiratory: Normal Breath Sounds, No Accessory Muscle Use, No Rales, No Rhonchi , No Wheezing Gastrointestinal/Abdominal: Soft, Tenderness (over epigastrum ), Guarding ( Voluntary ), No Rebound Rectal: Deferred Back: Normal Inspection Male Genital: Normal Inspection Extremity: Normal ROM, No Pedal Edema, No Calf Tenderness, No Swelling Pulses: Left Radial: Normal, Right Radial: Normal, Left Dorsalis Pedis: Normal, Right Dorsalis Pedis: Normal Neurological/Psych: Oriented x3, Normal Speech, Normal Cognition Gait: Steady ED Course And Treatment - Laboratory Results Result Diagrams: 05/27/17 03:16 05/26/17 23:27 ECG: Interpreted By Me, Viewed By Me ECG Rhythm: Sinus Rhythm ECG Interpretation: Normal Interpretation Of ECG: EKG shows NSR at 66 BPM, with no ectopy, ST or T wave changes, intervals within normal limits, no acute evidence of ischemia, no old EKG for comparison. Rate From EC O2 Sat by Pulse Oximetry: 99 (On RA) Pulse Ox Interpretation: Normal - Radiology CXR: Interpreted by Me, Viewed By Me CXR Interpretation: Yes: No Acute Disease, Other (Arthosclerotic aortic nob) Nexus Criteria: Negative - CT Scan/US CT abdomen/ pelvis Other Rad Studies (CT/US): Interpreted By Me, Read By Radiologist, Radiology Report Reviewed CT/US Interpretation: FINDINGS: LIMITATIONS: Mild to moderate streak/motion artifact. LOWER THORAX: Emphysematous changes in the lung bases. No pneumothorax is seen. ABDOMEN: LIVER: Large (11 x 8.5 x 5.5 cm) oval-shaped area of decreased enhancement in the liver, in the. right lobe, which has irregular margins and an overall CT attenuation of 57 Hounsfield units. This is. suspicious for a large acute intraparenchymal hematoma. There are small areas of active bleeding. seen within it. GALLBLADDER AND BILE DUCTS: No CT evidence of acute cholecystitis. No evidence of. significant biliary ductal dilatation. PANCREAS: No CT evidence of acute pancreatitis. SPLEEN: No evidence of splenic laceration. ADRENALS: No evidence of adrenal hemorrhage/ hematoma. KIDNEYS AND URETERS: Tiny, nonobstructing left renal stone. No evidence of perinephric. hemorrhage. STOMACH AND BOWEL: Short segment /focal area of wall thickening involving the proximal. ascending colon, just above the cecum. There are multiple nearby small lymph nodes seen. No. definite focally inflamed diverticulum to suggest acute diverticulitis. No evidence of associated colonic. obstruction. Cannot rule out focal neoplastic wall thickening, due to a stricture. Extensive colonic diverticulosis, without definite evidence of acute diverticulitis. Otherwise, no significant abnormality of the bowel is identified. No evidence of bowel obstruction. APPENDIX: Normal appendix is not seen, however, there are no significant inflammatory changes. visualized in the expected location of the appendix to suggest appendicitis. Recommend clinical. correlation. PELVIS: BLADDER: No acute abnormality of the bladder identified. REPRODUCTIVE: Prostate gland is markedly enlarged and enhances heterogeneously. ABDOMEN and PELVIS: INTRAPERITONEAL SPACE: Moderate amount of hemorrhage/hemoperitoneum in the abdomen. and pelvis, greatest in the right abdomen. No evidence of free air. BONES/JOINTS: No acute fractures or other acute bony abnormality noted. SOFT TISSUES: Left inguinal hernia, containing a small bowel loop. No associated bowel. obstruction. There is also a small amount of complex fluid in the left inguinal canal. VASCULATURE: No evidence of abdominal aortic aneurysm. No evidence of periaortic. hemorrhage. LYMPH NODES: See above. No evidence of diffuse pathologic lymphadenopathy. IMPRESSION: - Findings highly suspicious for a large 11 x 8.5 x 5.5 cm acute intraparenchymal hematoma in. the right lobe of the liver, associated with active extravasation and a moderate amount of. hemoperitoneum. If there is a history of trauma, this is compatible with a grade 3 liver injury. If. there is no history of trauma, the findings could be due to an underlying liver lesion which has. undergone hemorrhage. - Short segment area of wall thickening in the proximal ascending colon, above the cecum , and. cannot rule out neoplastic wall thickening, secondary to a stricture. - See above for remaining findings. Thank you for allowing us to participate in the care of your patient Medical Decision Making Medical Decision Making: Impression: 71 y/o male with abdominal pain Plan: * EKG, CT abdomen/pelvis ordered * Blood work ordered * CXR ordered * Dilaudid 1 mg IVP, Morphine 4 mg IVP, IV fluids, Zofran 4 mg IVP given Patient's blood work showed his white count was at 17,000, the a CT w/o contrast was ordered. 03:41 am - Patient after hearing the radiology impression that he has an active bleeding of his hematoma of the liver, patient then began 2 L normal saline, H& H was repeated and resulted 12.8 and 38 respectively, right now his O2 sat on RA is 92 and his BP is 101/49, will likely require interventional radiology for embolization of the bleeding vessels in his liver. Patient will be transferred to [facility] under Dr. Mcdonald who accepted the patient and all the imaging results will be copied and sent with the patient. Diagnosis was an internal hemorrhage bleeding hematoma of the liver. Disposition - Disposition Referrals: Non [facility] Provider, [Primary Care Provider] - Disposition: Trans to Other Acute Care Hosp Disposition Time: 03:52 Condition: SERIOUS Forms: Gen Discharge Inst Kyrgyz, [employer] (German) - Clinical Impression Clinical Impression: Internal hemorrhage, Liver hematoma - Scribe Statement The provider has reviewed the documentation as recorded by the Scribe Chriss Farmer All medical record entries made by the Scribe were at my direction and personally dictated by me. I have reviewed the chart and agree that the record accurately reflects my personal performance of the history, physical exam, medical decision making, and the department course for this patient. I have also personally directed, reviewed, and agree with the discharge instructions and disposition.
[2017-05-26] MEDS ORDERED: Aluminum Hydroxide/Magnesium Hydroxide Susp (30 mL) ONE (23:55)
[2017-05-27 00:01] LABS: AMYLASE 99 U/L (30-110)
[2017-05-27] MEDS ORDERED: Morphine 4 MG/ML VIAL IV ONE (00:30)
[2017-05-27] MEDS ORDERED: Morphine 4 MG/ML VIAL ONE (00:48)
[2017-05-27] MEDS ORDERED: Iodixanol 320 MG/ML 100 ML BOTTLE IV ONE (01:22)
[2017-05-27] MEDS ORDERED: HYDROmorphone 1 mg/ml ISec IVP STA ×2 (01:23→04:19)
[2017-05-27] MEDS ORDERED: HYDROmorphone 1 mg/ml ISec ONE ×2 (01:27→04:21)
--- NOTE | 2017-05-27 02:48 | CT ---
EXAM: CT Abdomen and Pelvis With Intravenous Contrast EXAM DATE/TIME: 05/27/2017 12:31 AM CLINICAL HISTORY: 71 years old, male; Pain; Abdominal pain; Prior surgery; Surgery type: Rt yordy hernia; Additional info: Abd pain, vomiting TECHNIQUE: Axial computed tomography images of the abdomen and pelvis with intravenous contrast. All CT scans at this facility use one or more dose reduction techniques, viz.: automated exposure control; ma/kV adjustment per patient size (including targeted exams where dose is matched to indication; i.e. head); or iterative reconstruction technique. Coronal and sagittal reformatted images were created and reviewed. CONTRAST: 100 mL of [id number] administered intravenously. COMPARISON: No relevant prior studies are available currently. The prior CT of 07/16/2016 has been requested. FINDINGS: LIMITATIONS: Mild to moderate streak/motion artifact. LOWER THORAX: Emphysematous changes in the lung bases. No pneumothorax is seen. ABDOMEN: LIVER: Large (11 x 8.5 x 5.5 cm) oval-shaped area of decreased enhancement in the liver, in the right lobe, which has irregular margins and an overall CT attenuation of 57 Hounsfield units. This is suspicious for a large acute intraparenchymal hematoma. There are small areas of active bleeding seen within it. GALLBLADDER AND BILE DUCTS: No CT evidence of acute cholecystitis. No evidence of significant biliary ductal dilatation. PANCREAS: No CT evidence of acute pancreatitis. SPLEEN: No evidence of splenic laceration. ADRENALS: No evidence of adrenal hemorrhage/hematoma. KIDNEYS AND URETERS: Tiny, nonobstructing left renal stone. No evidence of perinephric hemorrhage. STOMACH AND BOWEL: Short segment /focal area of wall thickening involving the proximal ascending colon, just above the cecum. There are multiple nearby small lymph nodes seen. No definite focally inflamed diverticulum to suggest acute diverticulitis. No evidence of associated colonic obstruction. Cannot rule out focal neoplastic wall thickening, due to a stricture. Extensive colonic diverticulosis, without definite evidence of acute diverticulitis. Otherwise, no significant abnormality of the bowel is identified. No evidence of bowel obstruction. APPENDIX: Normal appendix is not seen, however, there are no significant inflammatory changes visualized in the expected location of the appendix to suggest appendicitis. Recommend clinical correlation. PELVIS: BLADDER: No acute abnormality of the bladder identified. REPRODUCTIVE: Prostate gland is markedly enlarged and enhances heterogeneously. ABDOMEN and PELVIS: INTRAPERITONEAL SPACE: Moderate amount of hemorrhage/hemoperitoneum in the abdomen and pelvis, greatest in the right abdomen. No evidence of free air. BONES/JOINTS: No acute fractures or other acute bony abnormality noted. SOFT TISSUES: Left inguinal hernia, containing a small bowel loop. No associated bowel obstruction. There is also a small amount of complex fluid in the left inguinal canal. VASCULATURE: No evidence of abdominal aortic aneurysm. No evidence of periaortic hemorrhage. LYMPH NODES: See above. No evidence of diffuse pathologic lymphadenopathy. IMPRESSION: - Findings highly suspicious for a large 11 x 8.5 x 5.5 cm acute intraparenchymal hematoma in the right lobe of the liver, associated with active extravasation and a moderate amount of hemoperitoneum. If there is a history of trauma, this is compatible with a grade 3 liver injury. If there is no history of trauma, the findings could be due to an underlying liver lesion which has undergone hemorrhage. - Short segment area of wall thickening in the proximal ascending colon, above the cecum, and cannot rule out neoplastic wall thickening, secondary to a stricture. - See above for remaining findings.
[2017-05-27] MEDS ORDERED: Sodium Chloride 0.9% 1,000 ML IV ONE ×4 (03:13→04:15)
[2017-05-27 03:20] LABS: BASO # 0.2 K/uL (0.0-0.2); BASO % 0.5 % (0.0-2.0); EOS # 1.5 K/uL (0.0-0.7); HEMATOCRIT 38.4 % (35.0-51.0); LYMPH # 2.4 K/uL (1.0-4.3); LYMPH % 8.1 % (20.0-40.0); MEAN CORPUSCULAR HEMOGLOBIN 26.1 pg (27.0-31.0); MEAN CORPUSCULAR HGB CONC 33.1 g/dL (33.0-37.0); MEAN PLATELET VOLUME 10.2 fL (7.2-11.7); MONO # 7.5 K/uL (0.0-0.8); MONO % 24.7 % (0.0-10.0); WHITE BLOOD COUNT 30.4 K/uL (4.8-10.8)
[2017-05-27] MEDS ORDERED: Sodium Chloride 0.9% 2,000 ML ONE ×2 (03:22→04:57)
--- NOTE | 2017-05-27 03:49 | CP.PCM.PN ---
Subjective - Date & Time of Evaluation Date of Evaluation: 05/27/17 Time of Evaluation: 03:44 - Subjective Subjective: CC: I have pain on the right side of my abdomen HPI: Patient is a 71 year old male, with PMHx nephrolithiasis, HTN and Afib , who presents to [facility] ED for abdominal pain. Pt reports the pain began "2-3 hours ago" after FHx: denies SHx: tobacco: 3 cigs per day x 20 years, denies current alcohol use but has a a hx of drinking 3 beers and liquor for 20 years. Patient denies illicit drug use. He lives in an apartment with his in [place]. He lost his job at a [employer] last year and has been unemployed since. Patient denies any recent travel of sick contacts. PSHx: Hernia repair (right side) 2012; pt refused left sided repair Allergies: denies PMH: HTN, Afib, lipoma (found in bx from hernia surgery) Medications: PMD: none Objective - Vital Signs/Intake and Output Vital Signs (last 24 hours): Temp Pulse Resp BP Pulse Ox 97.4 F L 89 14 114/64 99 05/27/17 03:30 05/27/17 03:35 05/27/17 03:35 05/27/17 03:35 05/27/17 03:36 - Medications Medications: Current Medications Sodium Chloride (Sodium Chloride 0.9%) 1,000 mls @ 1,000 mls/hr IV .Q1H ONE Stop: 05/27/17 04:12 Last Admin: 05/27/17 03:25 Dose: 1,000 mls/hr Sodium Chloride (Sodium Chloride 0.9%) 1,000 mls @ 1,000 mls/hr IV .Q1H ONE Stop: 05/27/17 04:14 Last Admin: 05/27/17 03:25 Dose: 1,000 mls/hr - Labs Labs: 05/27/17 03:16 05/26/17 23:27
[2017-05-27 05:08] VITALS: BP 80/42; PULSE 92; RESP 19; TEMP 98.1
[2017-05-27 05:10] VITALS: O2SAT 99
--- NOTE | 2017-05-27 08:19 | RAD ---
HISTORY: chest pain; COMPARISON: Chest x-ray performed 07/17/16 TECHNIQUE: Chest, one view. FINDINGS: LUNGS: Emphysematous changes. Bibasilar atelectasis or infiltrates. Biapical pleural thickening. Scattered calcified granulomas bilaterally. Please note that chest x-ray has limited sensitivity for the detection of pulmonary masses. PLEURA: No significant pleural effusion identified. No definite pneumothorax . CARDIOVASCULAR: Cardiomegaly. Dense atherosclerotic calcifications of the aorta. OSSEOUS STRUCTURES: Degenerative changes of the spine and shoulders. VISUALIZED UPPER ABDOMEN: Unremarkable. OTHER FINDINGS: None. IMPRESSION: Bibasilar atelectasis or infiltrates. Biapical pleural thickening. Scattered calcified granulomas bilaterally. Emphysematous changes. Cardiomegaly.
--- NOTE | 2017-05-28 08:29 | CARD ---
APPROVED REPORT EKG Measurement Heart [id number] NE [id number] <Conclusion> Normal sinus rhythm Normal ECG
== END 2017-05-27 05:08 | disposition short-term general hospital (02) ==
LOC: C.ER 23:15 → SUPCPDRO 23:15 → C.ER 05-27 05:08
DX: R58 Hemorrhage, not elsewhere classified (principal); K76.89 Other specified diseases of liver
CPT/HCPCS: 71010; 74177; 80053; 82150; 83690; 84484; 85025; 86850; 86900; 86920; 93005; 96361; 96374; 96375; 96376; 99285; J0780; J1170; J2270; J2405; J7040; Q9967